=== PATIENT | female | born 1950 | race Caucasian/White ===

== ENCOUNTER → 2019-04-01 | Outpatient (REF) | payer MEDICARE | LOC: M LAB REF 15:08 | PROVIDERS: ATTEND Dermatology | DX: L28.0 Lichen simplex chronicus (principal) ==

== ENCOUNTER → 2021-08-19 | Outpatient (CLI) | payer MEDICARE | LOC: M PLARAD 14:51 | PROVIDERS: ATTEND Nurse Practitioner Adult Health | DX: R91.8 Other nonspecific abnormal finding of lung field (principal); I65.23 Occlusion and stenosis of bilateral carotid arteries; J34.2 Deviated nasal septum; I70.0 Atherosclerosis of aorta; I25.10 Atherosclerotic heart disease of native coronary artery without angina pectoris; K57.30 Diverticulosis of large intestine without perforation or abscess without bleeding | CPT/HCPCS: 78815; A9552 ==